=== PATIENT | female | born 1980 | race Caucasian/White ===

== ENCOUNTER 2023-10-14 15:27 | Emergency (ER) | payer OTHER, SELFPAY ==
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
[2023-10-14 15:33] VITALS: BP 115/84; PULSE 84; RESP 16; TEMP 36.1; O2SAT 100; BMI 20.7
--- NOTE | 2023-10-14 15:34 | ECG_ITS ---
Test Reason : MED CLEARANCE Blood Pressure : / mmHG Vent. Rate : 071 BPM Atrial Rate : 071 BPM P-R Int : 158 ms QRS Dur : 070 ms QT Int : 398 ms P-R-T Axes : 072 032 066 degrees QTc Int : 432 ms Normal sinus rhythm cannot exclude old Septal infarct , age undetermined - could be related to lead placement Abnormal ECG When compared with ECG of 02-JAN-2017 16:21, Septal infarct is now Present - Referred By: Madie Clemons Electronically Signed By:JOSIE LEE
[2023-10-14 16:05] LABS: Appearance Urine Clear; Color Urine Yellow; Glucose Urine UA Negative (Negative); Leukocyte Esterase Urine Negative (Negative); Nitrite Urine Negative (Negative); PH >= 9.0 (5.0-9.0); Specific Gravity - Urine 1.025 (1.005-1.025); Urine Blood Negative (Negative); Urine Ketones Trace mg/dL (Negative); Urine Protein Trace mg/dL (Neg-Trace)
[2023-10-14 16:11] LABS: Amphetamine Screen Urine Not Detected (Not Detect); Barbiturates, Urine Not Detected (Not Detect); Benzodiazepines Screen Urine POSITIVE (Not Detect); Cannabinoid Screen Urine Not Detected (Not Detect); Cocaine Screen Urine Not Detected (Not Detect); Fentanyl, urine Not Detected (Not Detect); Opiate Screen Urine Not Detected (Not Detect); Phencyclidine Screen Urine Not Detected (Not Detect)
[2023-10-14 16:14] LABS: Basophils Percent Auto 0.3 % (0-2); Eosinophils Percent Auto 0.2 % (0-4); Hematocrit 32.3 % (37.0-47.0); Hemoglobin 11.1 g/dl (12.0-16.0); Imm Gran Abs Auto 0.01 X10*3/uL (0.00-0.03); Imm Gran Pct Auto 0.2 % (0.0-0.4); Lymphocytes Percent Auto 15.8 % (20-40); MANUAL DIFF FLAG NO; Mean Corpuscular HGB Conc 34.4 g/dl (31.0-35.0); Mean Corpuscular Volume 84.3 fL (80.0-98.0); Mean Platelet Volume 8.6 fL (9.4-12.3); Monocytes Absolute Auto 0.4 X10*3/uL (0.1-1.2); Monocytes Percent Auto 6.8 % (2-11); Neutrophils Absolute Auto 4.8 x10*3/uL (2.0-8.3); Neutrophils Percent Auto 76.7 % (45-73); Platelet Count 240 X10*3/uL (160-400); Red Blood Count 3.83 X10*6/uL (4.20-5.50); Red Cell Distribution Width 12.3 % (11.0-16.0); White Blood Count 6.2 X10*3/uL (4.8-10.8)
--- NOTE | 2023-10-14 16:23 | PC.NURSE ---
spoke with pt, pt concerned re: food choices- sts she is vegetarian
--- NOTE | 2023-10-14 16:25 | PC.NURSE ---
pt resting with mother at bedside, calm and cooperative, answering questions appropriately. awaiting provider eval
[2023-10-14 16:36] LABS: Acetaminophen LAB < 3 mcg/mL (<30); Salicylate < 5.0 mg/dL (15-30)
[2023-10-14 16:40] LABS: HCG Quantitative 3 mIU/mL
[2023-10-14 16:41] LABS: Carbon Dioxide 27 mmol/L (22-29)
[2023-10-14 16:43] LABS: Alanine Aminotransferase 11 U/L (0-31); Albumin Level 4.4 g/dL (3.5-5.0); Alkaline Phosphatase 79 U/L (39-117); Anion Gap 10 (12-20); Aspartate Amino Transferase 17 U/L (5-31); Bilirubin Total 0.3 mg/dL (0.0-1.0); Blood Urea Nitrogen 10 mg/dL (9-16); Calcium 9.9 mg/dL (8.4-10.2); Chloride 105 mmol/L (96-108); Creatinine Clr Calc Pharmacy 73.1; Estimated Glomerular Filt Rate > 60; Ethanol < 10 mg/dL; Glucose Random 92 mg/dL (60-115); Potassium 3.7 mmol/L (3.3-5.1); Sodium 138 mmol/L (135-145); Total Protein 7.1 g/dL (6.5-8.0)
[2023-10-14 16:53] LABS: COVID-19 Test Negative (Negative); IDNOW Serial# 152EDE1D
[2023-10-14] MEDS: Acetaminophen 325 MG TABLET 975 MG PO (16:56)
--- NOTE | 2023-10-14 17:15 | PC.NURSE ---
pt a&o x4, calm, and cooperative. pt endorsing SI. multiple cuts on legs, fingernails bloody. pt sts she uses an exacto knife for self mutilation, specifically for pulling/cutting out pubic and leg hair. 1:1 sitter at bedside. all labs collected. pt medicated per mar for headache. call larry within reach. awaiting care team eval. plan of care ongoing.
--- NOTE | 2023-10-14 19:11 | PC.NURSE ---
vegetarian tray ordered and delivered to pt. report given to Kimberly in POD.
--- NOTE | 2023-10-14 19:15 | MHC.CARE ---
CARE Team is made aware by [facility] (after inquiry) that pt was seen in the community and is an inpt bedsearch.
[2023-10-14] MEDS: Gabapentin 600 MG TABLET PO (21:53)
[2023-10-14] MEDS: QUEtiapine Fumarate 50 MG TABLET PO (21:53)
[2023-10-14] MEDS: Melatonin 3 MG TABLET 9 MG PO (22:19)
[2023-10-14] MEDS: ALPRAZolam 0.5 MG TABLET PO (22:27)
[2023-10-15 06:21] VITALS: BP 91/57; PULSE 52; RESP 15; TEMP 36.3; O2SAT 100
[2023-10-15] MEDS: Omeprazole 40 MG CAPSULE.DR PO (06:33)
[2023-10-15] MEDS: Levothyroxine Sodium 25 MCG TABLET PO (06:33)
--- NOTE | 2023-10-15 06:57 | PC.NURSE ---
Assumed care of patient at 0700, patient appears to be sleeping, respirations even and unlabored, no apparent distress. Continue plan of care for inpt bedsearch and potential CARE team MSU
[2023-10-15] MEDS: Gabapentin 600 MG TABLET PO (10:03)
--- NOTE | 2023-10-15 10:07 | PC.NURSE ---
Patient reports to this RN that she would not like her morning Seroquel and does not want her morning Viibrid because she doesn't know if she started it yet . Patient back to sleep at this time, respirations even and unlabored, no apparent distress
--- NOTE | 2023-10-15 10:17 | MHC.CARE ---
Patient has been accepted to [facility] for today, 10/15/23. Address is [address] [place] [address] Julia Cespedes. ETA is RORY
[2023-10-15 11:48] VITALS: BP 109/78; PULSE 77; RESP 17; TEMP 36.7; O2SAT 100
[2023-10-15] MEDS: SUMAtriptan succinate 100 MG TABLET PO (12:15)
== END 2023-10-15 15:52 ==
PROVIDERS: Registered Nurse Emergency; Emergency Provider Emergency Medicine Emergency Medical Services; PCP Nurse Practitioner Family
DX: R45.851 Suicidal ideations (principal); R45.850 Homicidal ideations; F42.4 Excoriation (skin-picking) disorder; F41.9 Anxiety disorder, unspecified; F31.9 Bipolar disorder, unspecified; Z79.899 Other long term (current) drug therapy; Z91.52 Personal history of nonsuicidal self-harm; Z11.52 Encounter for screening for COVID-19
CPT/HCPCS: 80053; 80143; 80179; 80307; 81003; 84702; 85025; 87635; 93005; 99285

== ENCOUNTER → 2023-10-14 15:34 | Outpatient (BNV) | payer OTHER, SELFPAY | PROVIDERS: Emergency Provider Emergency Medicine Emergency Medical Services; PCP Nurse Practitioner Family; Visit Provider Internal Medicine | DX: R94.31 Abnormal electrocardiogram [ECG] [EKG] (principal) | CPT/HCPCS: 93010 ==